=== PATIENT | female | born 1995 | race Caucasian/White ===

== ENCOUNTER 2019-04-24 11:34 | Observation (INO) | payer SELFPAY ==
[2018-09-26 08:33] VITALS: BMI 23.6
[2019-04-24 11:35] VITALS: BP 135/89; PULSE 115; RESP 17; TEMP 36.9; O2SAT 97; BMI 25.4
--- NOTE | 2019-04-24 11:46 | US_ITS ---
STUDY: FIRST TRIMESTER OBSTETRICAL ULTRASOUND REASON FOR EXAM: Female, 23 years old , bleeding LMP: 03/17/2019 TECHNIQUE: Transvaginal TECHNICAL QUALITY: Adequate. PRIOR ULTRASOUND: None. FINDINGS: No endometrial canal fluid collection/gestational sac/. Anechoic cyst of the right ovary measures 4.7 x 3.8 x 2.6 cm. There is rrns-cu-iiiklwew free fluid. Mild heterogeneous thickening of the endometrial complex measuring up to 11 mm. Manager Beauty indicates a small cystic structure outside of the uterus measuring 3 mm on image time 1:14:44 PM (seen only on one image), limited detail but could represent an extra uterine yolk sac. The right ovary measures 4.8 x 4.4 x 3.3 cm. The left ovary measures 2.8 x 1.3 x 2.8 cm. There are multiple follicles of the left ovary without a dominant cyst. There is no visualized left adnexal mass or complex lesion. US/Transvaginal w/Preg US IMPRESSION: 1. NO intrauterine . Mild to moderate free fluid with large cyst of the right ovary. Ectopic should be considered although a definitive ectopic is not seen. Electronically Signed: Garry Clemons MD (Brooks) at 14:08 EST , Service support ,
[2019-04-24 12:03] LABS: Absolute Lymphocyte Count 1.04 X10^3/uL (0.83-4.51); Absolute Neutrophil Count 3.3 X10^3/uL (2.0-7.7); Basophil# 0.05 X10^3/uL; Eosinophil# 0.07 X10^3/uL; Eosinophils% 1.4 % (0-5); Hematocrit 43.1 % (37-47); Hemoglobin 14.6 g/dL (12.0-15.0); Lymphocyte # 1.04 X10^3/ul (4.0); Lymphocyte % 20.6 % (19-41); Mean Corp Hgb Conc 33.9 g/dL (32-36); Mean Corpuscular Volume 91.5 fL (81-99); Mean Platelet Vol. 9.7 fl (6.2-12.0); Monocyte# 0.58 X10^3/uL; Monocyte% 11.5 % (0-10); NRBC Flagged by Analyzer 0 % (0-5); Neutrophil # 3.28 X10^3/uL (2.7-7.7); Neutrophil % 65.1 % (47-70); Platelet Count 210 K/mm3 (150-450); RBC Distribution Width CV 11.9 % (11.6-14.6); RBC Distribution Width SD 40.6 fl (35.1-43.9); Red Blood Count 4.71 M/mm3 (4.2-5.4)
[2019-04-24 12:29] LABS: hCG Titer Quant., Serum 4 mIU/mL (1-3)
[2019-04-24] MEDS: 0.9% Normal Saline 1,000 ML 150 ML IV (12:30)
[2019-04-24 12:36] LABS: Bacteria 0 SEEN /hpf (None Seen); Mucous, Urine 0 SEEN /hpf (<or=2+); Squamous Epithelial Cells - UA 0 SEEN /hpf (5-10); White Blood Cells 0 SEEN /hpf (0-5)
[2019-04-24 12:43] LABS: Color, Urine Yellow (Yellow); Glucose, Dipstick Normal (Normal); Ketone-Dipstick Negative (Negative); Leukocyte Esterase-Dipstick Negative /ul (Negative); Nitrite-Dipstick Negative (Negative); Occult Blood-Urine 250 /ul (Negative); Protein-Dipstick 15 mg/dl (Negative); Urine Bilirubin Dipstick Negative (Negative); Urine Clarity Sl. Cloudy (Clear); Urine Urobilinogen Normal (Normal)
[2019-04-24 12:50] LABS: Red Blood Cells-Urine 50-100 SEEN /hpf (0-5)
--- NOTE | 2019-04-24 13:45 | ED.DCSUM_ITS ---
- ER Visit Summary Date of Service: 04/24/19 Chief Complaint: [Vaginal bleeding History of Present Illness: The patient is a 23 F [presents to the emergency department complaint of vaginal bleeding that started this morning. Patient states that she found out recently she was about a week ago by taking a home test. Her last menstrual period was March 17. Patient is G1, P0. Patient has been having some mild right-sided pain behind her right hip for about a week off-and-on that was pretty severe last night. Patient otherwise has no medical history. She has not established with an [facility] as of yet however she is in the process of attempting to establish with [facility]IP [facility] locally.] Physical Examination: [HEENT-PERRLA, EOMI. Cranial nerves II through XII grossly intact. TMs clear. Mucous membranes moist. No adenopathy. Cardiovascular-regular rate and rhythm without murmur or ectopy Lungs-clear to auscultation, chest wall stable without crepitus or subcu emphysema Abdomen-normoactive bowel sounds, soft, no rebound or rigidity, no peritoneal signs. Patient has some mild tenderness over right lower quadrant. No rebound, rigidity, cranial signs. Extremities-intact ?4, normal range of motion, normal pulses, atraumatic] Test Results: [CBC with it was normal. Quantitative hCG was 4. Type and Rh was O+. Pelvic ultrasound ordered and official results from radiology pending however the technologist believes that there is a likely ectopic within the right ovary with a heartbeat.] On the official interpretation from radiology it was noted that the patient had no evidence of intrauterine pregnan cy and mild to moderate free fluid. Patient had a right ovarian cyst that was large and ectopic should be considered. Emergency Department Course and Treatment: [I immediately contacted [facility] on- call. Spoke with Dr. Ramirez who evaluated patient in the emergency department and will admit patient for an observation.. Treatment Plan: [Admit to [facility] for observation] Disposition: [Admit] Impression: [Threatened first trimester-rule out ectopic] This note was generated with Easy-Pointation software. It may contain incorrect words, spelling, and punctuation that were not noted in review of the chart prior to signing ED Disposition - Plan for ED Patient: Referrals: Chio Castro MD [Primary Care Provider] -
--- NOTE | 2019-04-24 15:12 | PCM.HP.OB ---
- Problem List (1) Pelvic pain Status: Acute (2) Vaginal bleeding Status: Acute (3) History of ovarian cyst Status: Acute (4) Positive home test Status: Acute History Date of Admission: 04/24/19 History of this : This is a 23 year-old, who presented to the ED with VB and pain. She says she has had RLQ pain over the last week. This morning she had acute worsening of her RLQ pain that she described as severe. Her pain has now resolved. She also has had vaginal bleeding that started today that is heavy like a normal period for her. Otherwise she feels well and has no complaints. LMP 03/17/19. Took a positive home test 1.5 weeks ago. She has regular 28 day cycles. Allergies adhesive Allergy (Verified 04/24/19 11:35) Unknown milk Allergy (Verified 04/24/19 11:35) Unknown red dye Allergy (Verified 04/24/19 11:35) Unknown Home Medications: Home Medications NK 04/24/19 Smoking Status: Never smoker Alcohol: None History Past Pregnancies: Past Pregnancies Delivery Date Name GA/ Weeks Outcome Route Wt Sex Labor Length Anesthesia Delivery Location Provider FOB Review of Systems Constitutional: Denies: Fever Cardiovascular: Denies: Chest Pain, Syncope Gastrointestinal: Denies: Abdominal Pain, Nausea, Vomiting Gynecological: Reports: Vaginal bleeding Neurological: Denies: Confusion Psychiatric: Denies: Anxiety, Depression Physical Exam Vitals: Vital Signs Temp Pulse Resp BP Pulse Ox 98.5 F 115 H 17 135/89 H 97 04/24/19 11:35 04/24/19 11:35 04/24/19 11:35 04/24/19 11:35 04/24/19 11:35 General: Alert, No apparent distress, - - Comfortable appearing HEENT: Atraumatic Abdomen: Soft, Non Tender, Non-Distended Extremities:: No edema Neurological: Neuro grossly intact Assessment/Plan All Active Problems (Last Reviewed 09/26/18 @ 08:35 by Patti Gates) Pelvic pain (Acute) Vaginal bleeding (Acute) History of ovarian cyst (Acute) Positive home test (Acute) This is a 23 year-old who presents to the ER with vaginal bleeding and RLQ pain (that resolved). - HCG quant negative - HD stable, Hgb 14.6 - Pelvic US with a 4.7 cm right ovarian cyst and mild-moderate free fluid in the pelvis - Given her period-like bleeding and negative HCG quant, discussed likely SAB. Counseling provided today and all questions answered regarding miscarriage - Also discussed that cannot completely rule out an ectopic, and reviewed return precautions - Pain likely secondary to ruptured ovarian cyst. Pain now resolved and abdominal exam is benign - Admit for observation and repeat CBC - If Hgb stable, ok for d/c home with follow up in the office. If Hgb trending down, will either take for diagnostic laparoscopy or continued observing her overnight for a repeat CBC in AM
--- NOTE | 2019-04-24 15:20 | DCINST_ITS ---
- Discharge Diagnoses Current Active Problems: Current Active and Chronic Problems (Last Reviewed 09/26/18 @ 08:35 by Patti Gates) Pelvic pain (Acute) Vaginal bleeding (Acute) History of ovarian cyst (Acute) Positive home test (Acute) You will use the following diet at home:: No restrictions Discharge Activity: Return to Normal Activity May resume sexual activity in: No Restrictions Weight Bearing Status: Full weight bearing Lifting Restrictions: None Call your doctor if you observe: Shortness of breath, Dizziness, Fainting spells, Chest pain, Increased palpitations (irregular heartbeat), Uncontrolled pain, - - Vaginal bleeding saturating 1 pad per hour Allergies/Adverse Reactions: Allergies adhesive Allergy (Verified 04/24/19 11:35) Unknown milk Allergy (Verified 04/24/19 11:35) Unknown red dye Allergy (Verified 04/24/19 11:35) Unknown Medications to take at Discharge NK 04/24/19 Primary Care Physician: Chio Castro MD [Primary Care Provider] - Test Results: Test results from this visit will be discussed in further detail at your follow- up appointment, if applicable. Please Follow Up With: Cathy Ramirez DO When: 1 week
[2019-04-24 15:21] VITALS: BP 123/83; PULSE 96; RESP 18; O2SAT 99
[2019-04-24 15:38] VITALS: BMI 25.4
[2019-04-24] MEDS: Lactated Ringers 1,000 ML 125 ML IV (15:51)
[2019-04-24 15:54] VITALS: BP 121/75; PULSE 77; RESP 16; TEMP 36.6; O2SAT 97
[2019-04-24 16:56] LABS: Hematocrit 40.9 % (37-47); Hemoglobin 13.8 g/dL (12.0-15.0); Mean Corp Hgb Conc 33.7 g/dL (32-36); Mean Corpuscular Hgb 31.2 pg (27.0-32.0); Mean Corpuscular Volume 92.3 fL (81-99); Mean Platelet Vol. 9.6 fl (6.2-12.0); Platelet Count 214 K/mm3 (150-450); RBC Distribution Width SD 40.7 fl (35.1-43.9); Red Blood Count 4.43 M/mm3 (4.2-5.4); White Blood Count 9.3 K/mm3 (4.4-11.0)
== END 2019-04-24 17:28 | disposition home or self-care (01) ==
LOC: ED 11:52 → MS3 15:10
PROVIDERS: Admitting Provider Obstetrics & Gynecology; Emergency Provider Emergency Medicine; Family Provider Internal Medicine; PCP Internal Medicine; Referring Provider Obstetrics & Gynecology; Visit Provider Obstetrics & Gynecology
DX: O20.0 Threatened abortion (principal); N83.201 Unspecified ovarian cyst, right side; Z3A.00 Weeks of gestation of pregnancy not specified
CPT/HCPCS: 76817; 81001; 84702; 85025; 85027; 86900; 86901; 96360; 96361; 99218; 99285; J7120; G0378

== ENCOUNTER 2020-03-28 12:05 | Inpatient (IN) | payer MEDICAID, SELFPAY ==
[2019-04-24 15:38] VITALS: BMI 25.4
[2020-03-28] VITALS (20 sets, daily range): BP systolic 108–165; BP diastolic 60–98; PULSE 84–139; TEMP 36.1–37.1; O2SAT 99–100; BMI 30.4
[2020-03-28] MEDS: Lactated Ringers 1,000 ML 50 ML IV (12:25)
[2020-03-28 12:48] LABS: Absolute Lymphocyte Count 0.69 X10^3/uL (0.83-4.51); Absolute Neutrophil Count 11.4 X10^3/uL (2.0-7.7); Basophil# 0.04 X10^3/uL; Basophil% 0.3 % (0-1); Hematocrit 40.5 % (37-47); Hemoglobin 13.9 g/dL (12.0-15.0); Lymphocyte # 0.69 X10^3/ul (4.0); Lymphocyte % 5.2 % (19-41); Mean Corp Hgb Conc 34.3 g/dL (32-36); Mean Corpuscular Hgb 32.2 pg (27.0-32.0); Mean Corpuscular Volume 93.8 fL (81-99); Mean Platelet Vol. 10.9 fl (6.2-12.0); Monocyte# 0.94 X10^3/uL; Monocyte% 7.1 % (0-10); NRBC Flagged by Analyzer 0 % (0-5); Neutrophil # 11.38 X10^3/uL (2.7-7.7); Platelet Count 172 K/mm3 (150-450); RBC Distribution Width CV 12.7 % (11.6-14.6); RBC Distribution Width SD 43.6 fl (35.1-43.9); Red Blood Count 4.32 M/mm3 (4.2-5.4); White Blood Count 13.2 K/mm3 (4.4-11.0)
--- NOTE | 2020-03-28 16:33 | PCM.HP.OB ---
- Problem List (1) Active labor at term Status: Acute History Date of Admission: 04/24/19 Final REINALDO: 03/30/20 Gestational age: 39 Weeks and 5 Days History of this : This is a 24 year-old, G [2], P [0010], at 39 weeks 5 days gestational age. Presented this morning with contractions that because increased in frequency and intensity. Became regular with cervical change to 5cm and decision for admission. Allergies adhesive Allergy (Verified 03/28/20 12:44) Unknown milk Allergy (Verified 03/28/20 12:44) Unknown red dye Allergy (Verified 03/28/20 12:44) Unknown Smoking Status: Never smoker Alcohol: None Number of Fetus(es): 1 NST - FHR Rate Baby A Baseline: 135 Variability:: Moderate Accelerations:: 15 x 15 Decelerations:: None FHR Category:: Category I Uterine Activity:: Every 2-3 minutes, strong History Past Pregnancies: Past Pregnancies Delivery Date Name GA/ Weeks Outcome Route Wt Sex Labor Length Anesthesia Delivery Location Provider FOB Labs: Mom's Labs & Results 03/28/20 03/28/20 12:25 12:25 WBC 13.2 H RBC 4.32 Hgb 13.9 Hct 40.5 MCV 93.8 MCH 32.2 H MCHC 34.3 RDW Std Deviation 43.6 RDW Coeff of Yaniv 12.7 Plt Count 172 MPV 10.9 Immature Gran % (Auto) 1.400 H Neut % (Auto) 86.0 H Lymph % (Auto) 5.2 L [place] % (Auto) 7.1 Eos % (Auto) 0.0 Baso % (Auto) 0.3 Absolute Neuts (auto) 11.4 H Absolute Lymphs (auto) 0.69 L Nucleated RBC % 0 Blood Type O POSITIVE Antibody Screen NEGATIVE Course Did the patient receive Yes care? Labs Blood Type: O RH: POSITIVE RPR/VDRL/Syphilis Nonreactive Rubella status Immune HbSAg Negative Date Done: 08/16/19 Chlamydia Negative Gonorrhea Negative HIV/AIDS Non-Reactive Group B Strep: Negative Current Obstetrical History Gestational Diabetes No Incompetent Cervix No Infertility No IUGR No Macrosomia No Hypertension/Pre-eclampsia No Placenta Previa/Abruption No PTL/PROM No Uterine anomaly No Oligohydramnios No Polyhydramnios No Multiple gestation No Past Medical History Asthma No Diabetes No Hypertension No Heart disease No Mitral valve prolapse No Neurologic/Seizure disorder/ No Migraines Kidney disease No Liver disease No Varicosities No Clotting disorders/Hx of DVT No Thyroid Dysfunction No Other medical diseases No Psychiatric disorders No Major trauma No Abnormal PAP smear No Sleep apnea No Mammogram in the last 2 years No Social History Marital Status: Alleged father Huan Hx Smoking No Smoking Status Never smoker How long have you used n/a substances (years)? Expected Infant Delivery Method: Spontaneous Vaginal Review of Systems Constitutional: Denies: Chills, Fever, Weight Change HEENT: Denies: Head Aches, Sinus Congestion, Sinus Drainage Cardiovascular: Denies: Chest Pain, Palpitations Respiratory: Denies: Cough, Shortness of breath at rest, Sputum production Gastrointestinal: Denies: Abdominal Pain, Nausea, Vomiting Genitourinary: Denies: Dysuria Musculoskeletal: Denies: Joint Pain, Joint Tenderness Skin: Denies: Rash, Wounds Neurological: Denies: Numbness, Tingling, Focal weakness Psychiatric: Denies: Anxiety, Depression, Homicidal Ideations, Suicidal Ideations Hematologic/ Lymphatic: Denies: Easy Bruising, Easy Bleeding Physical Exam Vitals: Vital Signs Temp Pulse BP Pulse Ox 98.0 F 102 H 112/65 99 03/28/20 16:05 03/28/20 16:06 03/28/20 16:06 03/28/20 16:05 General: Alert, Oriented x3, Cooperative HEENT: Atraumatic, Normocephalic Cardiovascular: Regular rate, Regular Rhythm, No murmurs Lungs: Clear to auscultation, Normal air movement, No rhonchi, No wheeze Abdomen: Gravid Extremities:: No edema Neurological: Deep Tendon Reflexes 2+/4 and Symmetrical Estimated gestational size: Appropriate for gestational size Presentation: Cephalic Cervix Dilation (cm): 7 - AROM for moderate amount of meconium stained fluild Station: -1 Effacement (%): 90 Assessment/Plan All Active Problems (Last Reviewed 09/26/18 @ 08:35 by Patti Gates) Pelvic pain (Acute) Vaginal bleeding (Acute) History of ovarian cyst (Acute) Positive home test (Acute) Active labor at term (Acute) This is a 24 year-old, G [2], P [0010], at 39 weeks 5 days gestational age. A:Active Labor Category 1 FHT P: 1) Admit to labor and delivery 2) Routine labs, IV 3) Planning unmedicated , at bedside for labor support. Present for labor support if patient desires. 4) notified and updated on patient status. 5) GBS negative 6) No COVID results 7) Declines LARC
[2020-03-28] MEDS: fentaNYL 100 MCG/2 ML Ampul IV (17:38)
[2020-03-28] MEDS: 0.9% Saline Lock 10 ML Syringe IV ×2 (17:41→23:08)
[2020-03-28] MEDS: Oxytocin 30 units/NS 500 ml 30 UNITS/500 ML IV.SOLN 334 UNITS IV (20:36)
--- NOTE | 2020-03-28 21:09 | OP.PCM_ITS ---
Problem List (1) Active labor at term Status: Acute (2) Vaginal delivery Status: Acute (3) First degree perineal laceration Status: Acute (4) Meconium in amniotic fluid Status: Acute Vaginal Delivery Maternal Presentation: Active Labor Amniotic Membrane Rupture Type: Artificial Amniotic Fluid Description: Clear Final REINALDO: 03/30/20 Final REINALDO Source: LMP Gestational age: 39 Weeks and 5 Days Date of Procedure: 03/28/20 Pre-Operative Diagnosis: Active Labor Post-Operative Diagnosis: Surgery/ Procedure Performed: Spontaneous Vaginal Delivery Type of Anesthesia: Local with 1% lidocaine Description of Procedure: Progressed to complete with strong urge to push. Unmedicated. Silverware Buffer and respiratory called to delivery for Meconium stained fluid. of viable male infant over 1st degree perineal laceration at 2033. APGARS 8,9. Infant head delivered with body forth coming. Infant place on maternal abdomen, mouth and nares suctioned for secretions. Pitocin started for active 3rd stage management. Placenta delivered intact, via eufemia, 3 vessel cord. Perineum inspect and re vealed first degree perineal laceration repaired with 3.0 vicryl rapide and lidocaine. Well approximated and hemostasis achieved. Fundus firm, EBL 400ml. Vaginal sweep completed by me, sponge and instrument count correct. Mom and baby stable, family bonding well. Planning to breastfeed. notified. Presentation: Vertex Placental Delivery Description: Spontaneous Placenta Disposition: [facility] Cord Vessel Description: 3 Vessels Cord Entanglement: None Estimated Blood Loss: 400 ml Infant A gender: Male (1 minute): 8 (5 minute): 9 Episiotomy Description: None Laceration: Perineal Extension/lac, 1st degree Medications given after delivery: IV Pitocin Complications: None
[2020-03-28] MEDS: Ibuprofen 600 MG Tablet PO (22:04)
[2020-03-29 04:34] VITALS: BP 99/50; PULSE 100; RESP 16; TEMP 36.7; O2SAT 96
[2020-03-29] MEDS: Acetaminophen 500 MG Tablet 1000 MG PO ×2 (04:50→16:25)
[2020-03-29 04:52] LABS: Hematocrit 34.5 % (37-47); Hemoglobin 11.9 g/dL (12.0-15.0); Mean Corp Hgb Conc 34.5 g/dL (32-36); Mean Corpuscular Hgb 32.6 pg (27.0-32.0); Mean Corpuscular Volume 94.5 fL (81-99); Mean Platelet Vol. 10.5 fl (6.2-12.0); Platelet Count 177 K/mm3 (150-450); RBC Distribution Width CV 12.8 % (11.6-14.6); RBC Distribution Width SD 44.2 fl (35.1-43.9); Red Blood Count 3.65 M/mm3 (4.2-5.4); White Blood Count 18.6 K/mm3 (4.4-11.0)
[2020-03-29 08:30] VITALS: BP 115/73; PULSE 104; RESP 16; TEMP 36.9
--- NOTE | 2020-03-29 08:46 | PN.OBGYN_ITS ---
Patient Problems: Active and Suspected Problems (Last Reviewed 09/26/18 @ 08:35 by Patti Gates) Active labor at term (Acute) Vaginal delivery (Acute) First degree perineal laceration (Acute) Meconium in amniotic fluid (Acute) Subjective: pain well controlled, average lochia - Physical Exam Vitals/I&O's: Vital Signs Temp Pulse Resp BP Pulse Ox 98.5 F 104 H 16 115/73 96 03/29/20 08:30 03/29/20 08:30 03/29/20 08:30 03/29/20 08:30 03/29/20 04:34 Oxygen Delivery Method Room Air Weight: 87.997 kg Body Mass Index (BMI) 30.4 Intake and Output for Last 24 Hours 03/27/20 03/28/20 03/29/20 23:59 23:59 23:59 Intake Total 1245.83 / 1245.83 Output Total 400 / 400 600 / 600 Balance 845.83 / 845.83 -600 / -600 General: Alert, Cooperative, No apparent distress Laboratory Results 03/28/20 12:25: WBC 13.2 H, RBC 4.32, Hgb 13.9, Hct 40.5, MCV 93.8, MCH 32.2 H, MCHC 34.3, RDW Std Deviation 43.6, RDW Coeff of Yaniv 12.7, Plt Count 172, MPV 10.9, Immature Gran % (Auto) 1.400 H, Neut % (Auto) 86.0 H, Lymph % (Auto) 5.2 L , [place] % (Auto) 7.1, Eos % (Auto) 0.0, Baso % (Auto) 0.3, Absolute Neuts (auto) 11.4 H, Absolute Lymphs (auto) 0.69 L, Nucleated RBC % 0 03/28/20 12:25: Blood Type O POSITIVE, Antibody Screen NEGATIVE 03/29/20 04:40: WBC 18.6 H, RBC 3.65 L, Hgb 11.9 L, Hct 34.5 L, MCV 94.5, MCH 32.6 H, MCHC 34.5, RDW Std Deviation 44.2 H, RDW Coeff of Yaniv 12.8, Plt Count 177, MPV 10.5 Current Medications Acetaminophen (Acetaminophen 500 Mg Tablet) 1,000 mg PO Q8H PRN PRN PRN Reason: Pain Score 1-10 Last Admin: 03/29/20 04:50 Dose: 1,000 mg Documented by: Bisacodyl (Bisacodyl 10 Mg Suppository) 10 mg RECTAL UD PRN PRN Reason: If no BM Dibucaine (Dibucaine 30 Gm Tube) 1 applic TOPICAL TID PRN PRN; Protocol PRN Reason: Discomfort Hydrocortisone (Hydrocortisone 2.5% Crm) 1 applic TOPICAL TID PRN PRN; Protocol PRN Reason: Discomfort Ibuprofen (Ibuprofen 600 Mg Tablet) 600 mg PO Q6H PRN PRN PRN Reason: Pain Score 1-3 Last Admin: 03/28/20 22:04 Dose: 600 mg Documented by: Methylergonovine Maleate (Methylergonovine 0.2 Mg/Ml Ampul) 0.2 mg IM X1 PRN PRN Reason: Excess bleeding/uterine atony Ondansetron HCl (Ondansetron 4 Mg/2 Ml Vial) 4 mg IV Q4H PRN PRN PRN Reason: Nausea Senna/Docusate Sodium (Senna/Docusate Sodium 1 Tablet) 1 - 2 tablet PO DAILY PRN PRN PRN Reason: Constipation Simethicone (Simethicone 80 Mg Tablet) 80 mg PO PCHS PRN PRN Reason: Indigestion/Stomach pain Sodium Chloride (0.9% Saline Lock 10 Ml Syringe) 5 - 15 ml IV UD PRN PRN Reason: SALINE FLUSH Last Admin: 03/28/20 23:08 Dose: 10 ml Documented by: Medical Necessity - Tobacco Use Smoking Status: Never smoker Assessment/Plan All Active Problems (Last Reviewed 09/26/18 @ 08:35 by Patti Gates) Pelvic pain (Acute) Vaginal bleeding (Acute) History of ovarian cyst (Acute) Positive home test (Acute) Active labor at term (Acute) Vaginal delivery (Acute) First degree perineal laceration (Acute) Meconium in amniotic fluid (Acute) PPD#1 routine care work on likely home tomorrow
[2020-03-29] MEDS: Ibuprofen 600 MG Tablet PO ×2 (08:51→23:21)
[2020-03-29] MEDS: Senna/Docusate Sodium 1 Tablet PO (08:51)
[2020-03-29 12:00] VITALS: BP 93/55; PULSE 102; RESP 16; TEMP 36.8
[2020-03-29 20:22] VITALS: BP 103/73; PULSE 91; RESP 16; TEMP 36.4
[2020-03-30 02:11] VITALS: BP 98/46; PULSE 81; RESP 16; TEMP 36.5
[2020-03-30 07:55] VITALS: BP 120/82; PULSE 95; RESP 16; TEMP 36.7; O2SAT 100
--- NOTE | 2020-03-30 08:39 | PCM.PN.OB ---
Patient Problems: Active and Suspected Problems (Last Reviewed 09/26/18 @ 08:35 by Patti Gates) Active labor at term (Acute) Vaginal delivery (Acute) First degree perineal laceration (Acute) Meconium in amniotic fluid (Acute) Subjective: No complaints - Physical Exam Vitals/I&O's: Vital Signs Temp Pulse Resp BP Pulse Ox 98.0 F 95 16 120/82 H 100 03/30/20 07:55 03/30/20 07:55 03/30/20 07:55 03/30/20 07:55 03/30/20 07:55 Oxygen Delivery Method Room Air Weight: 194 lb Body Mass Index (BMI) 30.4 Intake and Output for Last 24 Hours 03/28/20 03/29/20 03/30/20 23:59 23:59 23:59 Intake Total 1245.83 / 1245.83 Output Total 400 / 400 600 / 600 Balance 845.83 / 845.83 -600 / -600 General: Alert, Oriented x3 Abdomen: Soft, Non Tender, Non-Distended - ff mid & below umb Extremities: No Calf Tenderness Current Medications Acetaminophen (Acetaminophen 500 Mg Tablet) 1,000 mg PO Q8H PRN PRN PRN Reason: Pain Score 1-10 Last Admin: 03/29/20 16:25 Dose: 1,000 mg Documented by: Bisacodyl (Bisacodyl 10 Mg Suppository) 10 mg RECTAL UD PRN PRN Reason: If no BM Dibucaine (Dibucaine 30 Gm Tube) 1 applic TOPICAL TID PRN PRN; Protocol PRN Reason: Discomfort Hydrocortisone (Hydrocortisone 2.5% Crm) 1 applic TOPICAL TID PRN PRN; Protocol PRN Reason: Discomfort Ibuprofen (Ibuprofen 600 Mg Tablet) 600 mg PO Q6H PRN PRN PRN Reason: Pain Score 1-3 Last Admin: 03/29/20 23:21 Dose: 600 mg Documented by: Methylergonovine Maleate (Methylergonovine 0.2 Mg/Ml Ampul) 0.2 mg IM X1 PRN PRN Reason: Excess bleeding/uterine atony Ondansetron HCl (Ondansetron 4 Mg/2 Ml Vial) 4 mg IV Q4H PRN PRN PRN Reason: Nausea Senna/Docusate Sodium (Senna/Docusate Sodium 1 Tablet) 1 - 2 tablet PO DAILY PRN PRN PRN Reason: Constipation Last Admin: 03/29/20 08:51 Dose: 2 tablet Documented by: Simethicone (Simethicone 80 Mg Tablet) 80 mg PO PCHS PRN PRN Reason: Indigestion/Stomach pain Sodium Chloride (0.9% Saline Lock 10 Ml Syringe) 5 - 15 ml IV UD PRN PRN Reason: SALINE FLUSH Last Admin: 03/28/20 23:08 Dose: 10 ml Documented by: Medical Necessity - Tobacco Use Smoking Status: Never smoker Assessment/Plan All Active Problems (Last Reviewed 09/26/18 @ 08:35 by Patti Gates) Pelvic pain (Acute) Vaginal bleeding (Acute) History of ovarian cyst (Acute) Positive home test (Acute) Active labor at term (Acute) Vaginal delivery (Acute) First degree perineal laceration (Acute) Meconium in amniotic fluid (Acute) D/c home
--- NOTE | 2020-03-30 08:40 | DCINST_ITS ---
Discharge Diet: No Restrictions Discharge Activity: May Drive, May Shower May resume sexual activity in: 6 weeks Additional Instructions: If you experience any of the following, contact your healthcare provider. * Bleeding that soaks a pad every hour for 2 hours * Fever 100.4 or higher * Unrelieved incision or abdominal pain * Swelling, redness, discharge or bleeding from your incision or episiotomy site * Your incision begins to separate * Problems urinating (including inability to urinate or burning while urinating). * Visual changes * Severe headache * Flu-like symptoms * Pain or redness in one of both of your breasts * Pain, warmth, tenderness or swelling in your legs, especially the calf area * Frequent nausea and vomiting * Symptoms of depression or anxiety If you experience any of the following, call 911 or go to the nearest Emergency Room. * Chest pain * Problems breathing * Seizure activity * Partial or complete paralysis of a body part, slurred speech, weakness or drooping of the face, or a sudden inability to walk or hold your balance Allergies/Adverse Reactions: Allergies adhesive Allergy (Verified 03/28/20 12:44) Unknown milk Allergy (Verified 03/28/20 12:44) Unknown red dye Allergy (Verified 03/28/20 12:44) Unknown Medications to take at Discharge Acetaminophen [Tylenol] 1,000 mg PO Q8H PRN PRN tab 03/30/20 Ibuprofen [Motrin] 600 mg PO Q6H PRN PRN tab 03/30/20 Primary Care Physician: Stoney Townsend MD [Primary Care Provider] - Test Results: Test results from this visit will be discussed in further detail at your follow- up appointment, if applicable.
--- NOTE | 2020-03-30 08:40 | PCM.DCVAG ---
Discharge Diet: No Restrictions Discharge Activity: May Drive, May Shower May resume sexual activity in: 6 weeks Additional Instructions: If you experience any of the following, contact your healthcare provider. Bleeding that soaks a pad every hour for 2 hours Fever 100.4 or higher Unrelieved incision or abdominal pain Swelling, redness, discharge or bleeding from your incision or episiotomy site Your incision begins to separate Problems urinating (including inability to urinate or burning while urinating). Visual changes Severe headache Flu-like symptoms Pain or redness in one of both of your breasts Pain, warmth, tenderness or swelling in your legs, especially the calf area Frequent nausea and vomiting Symptoms of depression or anxiety If you experience any of the following, call 911 or go to the nearest Emergency Room. Chest pain Problems breathing Seizure activity Partial or complete paralysis of a body part, slurred speech, weakness or drooping of the face, or a sudden inability to walk or hold your balance Allergies/Adverse Reactions: Allergies adhesive Allergy (Verified 03/28/20 12:44) Unknown milk Allergy (Verified 03/28/20 12:44) Unknown red dye Allergy (Verified 03/28/20 12:44) Unknown Medications to take at Discharge Acetaminophen [Tylenol] 1,000 mg PO Q8H PRN PRN tab 03/30/20 Ibuprofen [Motrin] 600 mg PO Q6H PRN PRN tab 03/30/20 Primary Care Physician: Stoney Townsend MD [Primary Care Provider] - Test Results: Test results from this visit will be discussed in further detail at your follow-up appointment, if applicable.
--- NOTE | 2020-04-05 12:12 | NURSING ---
follow up phone call completed, patient denies problems or concerns
== END 2020-03-30 12:35 | disposition home or self-care (01) | DRG 560 ==
LOC: WPOUT 12:07 → WP 12:07
PROVIDERS: Admitting Provider Advanced Practice Midwife; PCP Family Medicine; Visit Provider Advanced Practice Midwife
DX: O77.0 Labor and delivery complicated by meconium in amniotic fluid (principal); O70.0 First degree perineal laceration during delivery; Z3A.39 39 weeks gestation of pregnancy; Z37.0 Single live birth
CPT/HCPCS: 59025; 59050; 85025; 85027; 86850; 86900; 86901; 99218; J7120; A4216; G0378

== ENCOUNTER 2022-05-19 08:37 | Emergency (ER) | payer SELFPAY ==
[2022-05-19 08:40] VITALS: BP 118/78; PULSE 96; RESP 16; TEMP 36.5; O2SAT 99; BMI 29.5
--- NOTE | 2022-05-19 09:12 | EDS_ITS ---
HPI History of Present Illness Chief Complaint: Edema Informant: patient Narrative Narrative: 27-year-old female presenting to the emergency department with a chief complaint of facial swelling. Patient states that she is visiting from [place] and currently staying at an [facility]. She states that when they first arrived the next 2 small areas of urticaria on her bilateral cheeks. She took Benadryl and it seemed to get better. Today she woke up with more facial swelling and swelling around her eyes. She denies any fevers. She notes the skin is itchy and watery eyes. She notes that she brought her own pillow to sleep on. She denies any use of new soaps lotions etc. PFSH PFSH Home Medications acetaminophen 500 mg tablet 1,000 mg PO Q8H PRN PRN Pain Score 1-10 03/30/20 [Rx Last Taken Unknown] ibuprofen 600 mg tablet 600 mg PO Q6H PRN PRN Pain Score 1-3 03/30/20 [Rx Last Taken Unknown] famotidine 20 mg tablet (Pepcid) 20 mg PO BID #10 tabs 05/19/22 [Rx Last Taken Unknown] prednisone 20 mg tablet See Rx Instructions .Route .COMPLEX #24 TABLETS 05/19/22 [Rx Last Taken Unknown] Allergy/AdvReac Type Severity Reaction Status Date / Time adhesive Allergy Rash Verified 05/19/22 08:40 red dye Allergy Hives Verified 05/19/22 08:40 Family History Other Cancer Myocardial infarction Social History (Updated 09/26/18 @ 09:17 by Yenny FREEMAN, PA) Smoking Status: Never smoker alcohol intake: current alcohol intake frequency: a few times a month ROS ROS ED Constitutional Constitutional ED: Denies chills or weight loss Eyes Eyes: Denies change in vision or diplopia ENT ENT ED: Reports other Details: See HPI ; Denies ear pain, rhinorrhea or sore throat Cardiovascular Cardiovascular: Denies chest pain, orthopnea, palpitations or racing heartbeat Respiratory/Chest Respiratory/Chest: Denies cough, dyspnea or orthopnea Gastrointestinal Gastrointestinal: Denies abdominal pain, diarrhea, nausea or vomiting Genitourinary Genitourinary ED: Denies dysuria, hematuria or urinary frequency Musculoskeletal Musculoskeletal: Denies arthralgias or myalgias Integumentary Denies abscess or rash Neurologic Neurologic: Denies headache(s) or weakness Psychiatric Psychiatric: Denies anxiety, depression, suicidal ideation or suicidal thoughts Endocrine Endocrinology: Denies polydipsia, polyphagia or polyuria Allergic/Immunologic Allergic/Immunologic ED: Denies mouth swelling, tongue swelling or urticaria EXAM Physical Exam Const Vital Signs: 05/19/22 08:40 Temperature 97.7 F L Temperature Source Temporal Pulse Rate 96 Respiratory Rate 16 Blood Pressure 118/78 Blood Pressure Mean 91 Pulse Ox 99 Oxygen Delivery Method Room Air Positive well nourished and well developed General Appearance ED: well developed HEENT Reports normocephalic, head/scalp atraumatic and moist mucous membranes HEENT Narrative: There is swelling in the bilateral maxillary face area. This extends up onto the eyelids. The eyes are not injected. There is some mild erythema but it is not warm or consistent with erysipelas. Eyes PERRL and EOMs intact bilaterally Neck no lymphadenopathy, supple and no JVD Resp normal respiratory effort and clear to auscultation bilaterally Cardio regular rate, regular rhythm and no murmurs GI normal to inspection, nondistended, normoactive bowel sounds and non-tender Palpation: soft Back/Spine no CVA tenderness and normal ROM Extremity normal to inspection General Extremety ED: Negative for edema General Extremity: Negative for edema Neuro oriented x3 and CN's II-XII intact bilaterally Sensorium / Orientation: alert Motor Exam: strength 5/5 throughout Psych mental status grossly normal Mood & Affect: Negative for depressed or tearful Skin no rashes or lesions noted and no wounds MDM MDM MDM Narrative Medical decision making narrative: This appears to be an allergic reaction. I will give her a dose of Kenalog and write for her to have some prednisone as well as Pepcid and continued Benadryl. She is traveling back to [place] today and will follow-up with primary care. Discharge Plan Triage Chief Complaint: Allergic Reaction Other Complaint: Edema ED Provider: Piyush Huerta Dx/Rx/DC Orders Clinical Impression: Facial swelling, Allergic reaction Instructions: ED General Allergic Reactions Prescriptions: New prednisone 20 mg tablet See Rx Instructions .ROUTE .COMPLEX Qty: 24 0RF Rx Instructions: 3 tabs p.o. daily days 1 through 4, then 2 tabs p.o. daily days 5 through 8, then 1 tab p.o. daily day 9 through 12 famotidine [Pepcid] 20 mg tablet 20 mg PO BID Qty: 10 0RF No Action acetaminophen 500 MG tablet 1,000 mg PO Q8H PRN PRN (Reason: Pain Score 1-10) 0RF ibuprofen 600 MG tablet 600 mg PO Q6H PRN PRN (Reason: Pain Score 1-3) 0RF Primary Care Provider: Care Physician,No Primary Referrals: [facility] Doctor,Out of [Non-Staff] - Disposition Disposition: Home, Self Care
[2022-05-19] MEDS: Triamcinolone Acetonide 40 MG/ML Vial 80 MG IM (09:16)
== END 2022-05-19 09:38 | disposition home or self-care (01) ==
PROVIDERS: Emergency Provider Emergency Medicine; Visit Provider Emergency Medicine
DX: T78.40XA Allergy, unspecified, initial encounter (principal); R60.9 Edema, unspecified
CPT/HCPCS: 96372; 99282